=== PATIENT | female | born 1980 | race Caucasian/White ===

== ENCOUNTER 2018-03-03 10:12 | Outpatient (CLI) | payer OTHER | END 2018-03-03 17:00 | disposition home or self-care (01) | LOC: TOM 10:12 | DX: C81.90 Hodgkin lymphoma, unspecified, unspecified site (principal) ==

== ENCOUNTER 2024-04-21 12:50 | Emergency (ER) | payer OTHER ==
[~2024-04-21] VITALS: Ht 162.6 cm; Wt 49.0 kg
[2024-04-21] MEDS ORDERED: SYNTHROID75 MCG PO (13:21)
[2024-04-21] MEDS ORDERED: FAMOtidine 10 MG/ML (4ML VIAL) IV STA (14:14)
[2024-04-21] MEDS ORDERED: 0.9 % SODIUM CHLORIDE 500 ML IV STA (14:14)
[2024-04-21 15:25] LABS: HEMATOCRIT 41.3 % (36.0-45.00); HEMOGLOBIN 14.1 g/dL (12.0-15.00); MEAN CELL VOLUME 94.4 fL (80.00-100.00); MEAN CORPUSCULAR HEMOGLOBIN 32.3 pg (27.00-32.0); MEAN CORPUSCULAR HGB CONC 34.2 g/dl (32.0-36.0); PLATELET COUNT 220 K/uL (150-450); RED BLOOD COUNT 4.38 M/uL (4.00-6.00); RED CELL DISTRIBUTION WIDTH 13.6 % (11.5-14.5)
[2024-04-21 16:00] LABS: CALCIUM 8.9 mg/dL (8.5-10.1); CREATININE SERUM 0.62 mg/dL (0.55-1.02); GFR 105.56; POTASSIUM 3.22 mEq/L (3.5-5.1)
[2024-04-21 17:37] LABS: URINE APPEARANCE Clear; URINE BILIRRUBIN Negative (NEGATIVE); URINE BLOOD Negative; URINE COLOR Yellow; URINE GLUCOSE Negative (NEGATIVE); URINE LEUKOCYTE Negative; URINE NITRATE Negative; URINE PROTEIN Negative (NEGATIVE); URINE UROBILINOGEN 0.2 E.U./dl
[2024-04-21 17:39] LABS: URINE BACTERIA 120.9 uL (0.0-1933); URINE EPITHELIAL CELLS 5.1 uL (0.0-38.8); URINE WBC 4.4 uL (0.0-23.2)
== END 2024-04-21 20:10 | disposition home or self-care (01) ==
LOC: ER 12:50
PROVIDERS: General Practice
DX: R10.9 Unspecified abdominal pain (principal); E03.8 Other specified hypothyroidism; Z88.6 Allergy status to analgesic agent